=== PATIENT | female | born 1985 | race Caucasian/White ===

== ENCOUNTER 2025-02-10 12:29 | Observation (INO) | payer OTHER, SELFPAY ==
--- OUTSIDE RECORDS SUMMARY | 2025-02-07 11:00 | XMS_ITS | Encounter Summary ---
Author Organization [employer] tem Address [id number] [address] [place] [address] Care Team Providers Care It Administrative Assistant Name Role Phone Unavailable Primary Care Provider Unavailabl e Reason for Referral * Cardiology (Routine) - Pending Review Specialty Diagnoses / Procedures Referred By Tamanna hay Referred To Contact Diagnoses Family history of VSD (ventricular septal defect) Procedures Echo complete W/O contrast Catrachito Joel MD [address], [address] [place] [address] Phone: tel: fax: Referral ID Status Reason Start Date Expiration Date V isits Requested Visits Authorized [id number] Pending Review 02/07/2025 02/07/2026 1 1 Reason for Visit * Reason Comments MFM consult Encounter Details Date Type Department Care Team (Late st Contact Info) Description 02/07/2025 11:00 AM EDT Telemedicine Maternal Medicine [place] [address] [place] [address] Catrachito Joel MD [address], [address] [place] [id number] 22 weeks gestation of (Primary Dx); AMA (advanced maternal age) multigravida 35+, first trimester; Abnormal genetic test during ; trisomy 21 affecting care of mother, antepartum, single or unspecified fetus; affected by multiple congenital anomalies of fetus, single or unspecified fetus; Family history of VSD (ventricular septal defect) Social History Tobacco Use Types Packs/Day Years Used Date Smoking Tobacco: Some Days Cigarettes Smokeless Tobacco: Never Alcohol Use Standard Drinks/Week Comments Not Currently 0 (1 standard drink = 0.6 oz pur e alcohol) Childcare Answer Date Recorded Childcare Unknown 11/15/2018 Employment Answer Date Recorded Employment Unknown 11/15/2018 Hunger Screening Answer Date Recorded Within the past 12 months we worried whether our food would run out before we got money to buy more. Never True 02/07/2025 Within the past 12 months th e food we bought just didn't last and we didn't have money to get more. Never True 02/07/2025 Estimated Date of Delivery Comme nts Yes 06/13/2025 Based on Ultraso und Sex and Gender Information Value Date Recorded Sex Assigned at Not on file Legal Sex Female 12:10 PM EDT Gender Identity Not on file Sexual Orientation Not on file documented as of this encounter Last Filed Vital Signs Vital Sign Reading Time Taken Comments Blood Pressure 100/70 02/07/2025 11:13 AM EDT Pulse - - Temperature - - Respiratory Rate - - Oxygen Saturation - - Inhaled Oxygen Concentration - - Weight 73.8 kg (162 lb 12.8 oz) 025 11:13 AM EDT Height - - Body Mass Index 29.78 10/12/2024 3:45 PM EDT documented in this encounter Progress Notes * Kat Angela RN - 02/07/2025 11:00 AM EDT Headache/epigastric pain/blurry vision/swelling? denies Cramping/contractions? denies Spotting/vaginal bleeding? denies Loss or gush of fluid like your water may have broken? denies Do you have cats at home? yes Do you change the litter box (reason: risk of toxoplasmosis)? no Genetic testing done this here or other office? yes, (+) T21, carrier screen positive, MSAFP negative Have you been seen here at [facility] in a previous ? no Recent ER visits or hospitalizations? denies Bring blood sugar log or meter with you today? (Please bring them with you for every visit at [facility]) na Flu vaccine (Apr-August)? no Any concerns that you would like me to mention to the provider today? None * Catrachito Joel MD - 02/07/2025 11:00 AM EDT Images from the original note were not included. Video Visit via Real-time Synchronous Audiovisual Provider Location: [facility]- MEDICINE AT [address] [address] Patient Location: [facility] Office Patient Location [place]: None Video Visit Consent Statement: I discussed risks, benefits, and alternatives of a real-time synchronous audiovisual consultation with the patient (and any accompanying persons) including the risks that the patient's personal health details and medical records will be discussed over real-time, synchronous, interactive video/audio/telecommunication technology, the visit will not be recorded withoutthe express consent of both the provider and the patient, and that there are some limitations compared to [id number]-xu-xaqj evaluations. We elected to proceed. [facility] Maternal- Medicine Consult Note Reason For Consult: Trisomy 21 high risk HPI: Cha Mcgregor is a 39 y.o. at 22w0d with Estimated Date of Delivery: 06/13/25 Chief Complaint Patient presents with [facility] consult I have reviewed the pertinent available patient records including but not limited to notes, labs and images She presents today with her partner. She reports that she is doing well. She reports normal movements and she denies leakage of fluid, contractions or vaginal bleeding. She denies fever, chills, nausea, vomiting, shortness of breath, chest pain, headache, blurry vision, right upper quadrant pain or edema. Complications: Cell free DNA high-risk for T21 along with multiple anomalies Baby Boy Name: Arvind Alvarado s/p genetic consult. Has declined amniocentesis. Multiple anomalies today concerning for T21 - absent nasal bone - left pyelectasis measuring 5.6 mm - left clubfoot - echogenic intracardiac focus - VSD - abnormal three-vessel view with a concern for dilated aortic root - hypocoiled cord Advanced maternal age Carrier for Ftnxo-Iiyio-Xxolg - FOB screen drawn today Her sister was born with a hole in the heart that closed on its own. Her mother has MS. There is also family history of autism FOB has Tourette syndrome Denies family history of: Learning difficulties, congenital anomalies, DVT/VTE, or other inherited conditions Cell free DNA: high risk for Trisomy 21 MSAFP: negative Denies smoking, alcohol or other substance use in Denies exposure to cat litter, farming animals, toxic exposure to chemical at work/environment Recent hospitalization: no Review of systems: Review of systems was noncontributory OB Hx: OB History Para Term AB Living 1 SAB IAB Ectopic Multiple Live Births # Outcome Date GA Lbr Selvin/2nd Weight Sex Type Anes PTL Lv 1 Current PMH: Past Medical History: Diagnosis Date GERD (gastroesophageal reflux disease) PSHIST: History reviewed. No pertinent surgical history. Allergies: Allergies Allergen Reactions Sulfamethoxazole-Trimethoprim Hives Amoxicillin Rash As child Penicillins Rash As child Meds: Current Outpatient Medications: famotidine (PEPCID) 20 mg tablet, Take 1 tablet (20 mg total) by mouth once daily at bedtime for 30days., Disp: 30 tablet, Rfl: 1 magnesium oxide (MAGOX) 400 mg tablet, Take 1 tablet (400 mg total) by mouth in the morning for 30 days., Disp: 30 tablet, Rfl: 3 vit,efqi56-wfrk-ursto 29 mg iron- 1 mg tablet, Take 1 tablet by mouth in the morning for 90 days., Disp: 90 tablet, Rfl: 3 doxylamine (UNISOM) 25 mg tablet, Take one tablet by mouth at bedtime (Patient not taking: Reportedon 11/30/2024), Disp: 30 tablet, Rfl: 6 PNV 12-rvod-ilqlxryfsmgj-dha 29 mg iron-1 mg -350 mg comb pack,tablet DR,capsule DR, Take 1 tablet by mouth in the morning. (Patient not taking: Reported on 02/07/2025), Disp: , Rfl: pyridoxine, vitamin B6, (B-6) 25 mg tablet, Take 1 tablet (25 mg total) by mouth 4 (four) times a day with meals and nightly. (Patient not taking: Reported on 11/30/2024), Disp: 120 tablet, Rfl: 6 SH: Social History Socioeconomic History Marital status: Spouse name: Not on file Number of children: Not on file Years of education: Not on file Highest education level: Not on file Occupational History Not on file Tobacco Use Smoking status: Some Days Types: Cigarettes Smokeless tobacco: Never Vaping Use Vaping status: Never Used Substance and Sexual Activity Alcohol use: Not Currently Drug use: Yes Types: Marijuana Comment: Approx 2 times daily Sexual activity: Yes Partners: Male Comment: x 3 years Other Topics Concern Not on file Social History Narrative Not on file Social Drivers of Health Financial Resource Strain: Not on file Food Insecurity: No Food Insecurity (02/07/2025) Hunger Screening Food Insecurity - Worry: Never True Food Insecurity - Inability: Never True Transportation Needs: Not on file Physical Activity: Not on file Stress: Not on file Social Connections: Not on file Interpersonal Safety: Not on file Housing Instability: Not on file Physical Exam: Vital Signs Vitals: 02/07/25 1113 BP: 100/70 Weight: 73.8 kg (162 lb 12.8 oz) Physical Exam: Gen: Not in acute distress, alert and oriented. Notes/Imaging/Labs reviewed Routine on 01/25/2025 Component Date Value Ref Range Status AFP SINGLE MARKER SCRN, MATERNAL, * 01/25/2025 SEE COMMENTS Final Comment: Test Result Flag Unit RefValue AFP Single Marker SCRN, Maternal, S Results Summary Normal risk Neural tube defect risk estimate 1/6,500 AFP 69.5 ng/mL AFP MoM 1.24 MoM <2.50 INTERPRETATION Screen negative for neural tube defects. RECOMMENDED FOLLOW UP None. Specimen collection date 01/25/25 Maternal date of 89 Calculated age at IDRIS 40 years Maternal Weight 161 lbs Insulin dependent diabetes No Patient race non-Black Current cigarette smoking status non-Smoker IDRIS by U/S scan 06/13/2025 GA on collection by U/S scan 20,1 wk,d GA used in risk estimate Scan estimate Number of Fetuses 1 Number of Chorions Not applicable IVF No Prev w/ Neural Tube Defect No Patient or father of baby has a NTD No Initial or repeat testing Initial testing Physician GENERAL TEST INFORMATION SEE COMMENTS This screening provides an estimation of risk, not a diagnosis. Incorrect or incomplete information may significantly alter results. Results may be unreliable in twin pregnancies with a demise. Results are not available for pregnancies with triplets and higher-order multiples. A positive result occurs when the AFP MoM equals or exceeds 2.5. Screen results and family history influence individual risk. If there is a family history of a neural tube defect, chromosome abnormality, or other inherited condition, consider the option of a genetic consultation. For further information, please contact the maternal screening laboratory at . ADDITIONAL INFORMATION This test was developed and its performance characteristics determined by [facility] in a manner consistent with CLIA requirements. This test has not been cleared or approved by the U.S. Food and Drug Administration. Test Performed by: [facility] [address] [place] [address] Hat Blocking Machine Operator: Machelle Stinson Ph.D.; CLIA# [id number] Ultrasound findings Pertinent Ultrasound findings are see report Assessment/Plan 39 y.o. @ at 22w0d with Estimated Date of Delivery: 06/13/25 here for consultation regardin. 22 weeks gestation of 2. AMA (advanced maternal age) multigravida 35+, first trimester 3. Abnormal genetic test during 4. trisomy 21 affecting care of mother, antepartum, single or unspecified fetus 5. affected by multiple congenital anomalies of fetus, single or unspecified fetus 6. 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 Risk after test 95%. She understands that cell free DNA is not a diagnostic test with a screening test. She has a received genetic consultation. Amniocentesis was reviewed again today in detail and she declined. This is a desired . Down syndrome (trisomy 21) is a genetic disorder caused by the presence of all or a portion of a third chromosome 21.The incidence of Down syndrome increases with maternal age, and it occurrence varies in different population (1 in 319 to 1 in 1000 live births). In terms of pathophysiology T21 occurs due to an extra copy of chromosome 21 which occurs due to the failure of chromosome 21 to separate during gametogenesis resulting in an extra chromosome in all the body cells. Robertsonian translocation and isochromosome or ring chromosome are the other 2 possible causes of trisomy 21. This occurs in 2% to 4% of the patients. Different clinical conditions are associated with T21 as different systems are affected by it. These patients have a wide array of signs and symptoms like intellectual and developmental disabilities or neurological features, congenital heart defects, gastrointestinal (GI) abnormalities, hematologic abnormalities, ears/nose/throat issues, feeding problems, endocrine problems. Also T21 survivors are at increased risk for conditions such as leukomeia, early-onset dementia, diabetes, obesity too. The management of patients with T21 is multidisciplinary. with suspicion of Down syndrome, should have a karyotyping done to confirm the diagnosis. With the recentadvances in the medical practice, development of surgical techniques for the correction of congenital disabilities and improvement in general care there has been a tremendous increase in the survivalof infants and life expectancy of patients with Down syndrome. On ultrasound today there are multiple anomalies concerning for trisomy 21. Absent nasal bone, left pyelectasis measuring 5.6 mm left clubfoot, echogenic intracardiac focus, VSD, abnormal three-vessel view with a concern for dilated aortic root, hypocoiled cord. Each of the findings was reviewed in great detail. Pediatric cardiology referral initiated. The patient we will need NICU consultation in the 3rd trimester. We will continue to re-evaluate the kidneys on ultrasound today otherwise normal appearance of the right kidney, amniotic fluid and bladder. Idiscussed with her that I would recommend serial growth ultrasounds, surveillance and her should be managed in multidisciplinary fashion with NICU and pediatric cardiology. Pediatric orthopedics would also evaluated the baby postnatally for the clubfoot. Risks of advanced maternal age to her include but not limited to increased risk of preeclampsia, gestational diabetes, stillbirth and placenta insufficiency. She is a carrier for Avhrp-Idowu-Vjdbm. Phenotype genotype of the condition reviewed and FOB to be screened today Risk of MS current discussed. She declines having any neurological symptoms. The patient herself has never had an echocardiogram I reviewed with her that technically an echocardiogram is also indicated in her case as she has a first- degree relative with a congenital heart defects. The patient herself otherwise has been asymptomatic from a cardiac standpoint. Recommendations: Declined amniocentesis Referral to pediatric cardiology Follow-up survey and MFM consult in 4 weeks at [facility] Serial growth ultrasounds q.4 weeks through MFM Weekly NST and DVP from 32 weeks until delivery this can be done through primary OB office Delivery location I recommend delivery at [facility] NICU consult The patient to be presented to multidisciplinary meeting with the NICU Timing of delivery at 39 weeks provided maternal and stability Please monitor her mood Screening maternal echocardiogram Plan reviewed with patient. She vocalized understanding all questions answered. The patient is to continue with routine care in your office Thank you for allowing me to participate in her care. Please contact me if you have any concerns. Catrachito Joel MD, FACOG (she/hers) Maternal- Medicine [facility] [address] [facility] 1st [place] [address] This document was created with [employer] technology. Though I make every effort to review the dictation as it is transcribed, on occasion the spoken word can be misinterpreted by the technology leading to inappropriate words, phrases, or sentences. This note is addressed to the requesting provider as a consultation for clinical guidance. Specificmedical abbreviations are occasionally used and those are generally approved by the [place]?Board of?Obstetrics and?Gynecology?as well as?Tian???s abbreviations. The above plan of care was based solely on the diagnoses for which a consultation was requested. ?More frequent testing may be indicated based on her other medical/obstetrical conditions. The management of other or medical conditions is beyond the scope of requested consultation and will c ontinue to be followed by the primary hostel manager or primary care provider. Note to patient: The 21st Century Cures Act makes medical notes like these available to patients inthe interest of transparency. However, be advised this is a medical document. It is intended as peer to peer communication. It is written in medical language and may contain abbreviations or verbiagethat are unfamiliar. It may appear blunt or direct. Medical documents are intended to carry relevant information, facts as evident, and the clinical opinion of the practitioner. * Kat Angela RN - 02/07/2025 11:00 AM EDT Father of baby would like to get the carrier screen done, but wishes to wait until he gets his insurance information. He does not yet have a card or ID #. Advised him to call the office as soon as hegets that information and I will draw the labs. documented in this encounter Plan of Treatment Upcoming Encounters Date Type Department Care Team (Late st Contact Info) Description 02/22/2025 9:00 AM EDT Routine [facility] Certified Nurse Roll Over Press Operator - [address] [place] [address] 03/12/2025 10:30 AM EDT Office Visit [facility] Pediatric Cardiology [address] [place] [phone] Jesus Tucker MD [address] [place] [address] 03/12/2025 1:00 PM EDT Appointment [facility] US Imaging [address] [place] [phone] Catrachito Joel MD [address], [address] [place] [address] 03/12/2025 2:00 PM EDT Office Visit Maternal- Medicine at [facility] [address] [place] [phone] Catrachito Joel MD [address], [address] [place] [phone] Scheduled Orders Name Type Priority Associated Diagnoses Orde r Schedule Echo complete W/O contrast Echocardiography Routine Family history of VSD (ventricular septal defect) Expected: 02/07/2025, Expires: 02/07/2026 documented as of this encounter Visit Diagnoses Diagnosis 22 weeks gestation of - Primary AMA (advanced maternal age) multigravida 35+, first trimester Abnormal genetic test during trisomy 21 affecting care of mother, antepartum, single or unspecified fetus affected by multiple congenital anomalies of fetus, single or unspecified fetus Family history of VSD (ventricular septal defect) documented in this encounter
--- OUTSIDE RECORDS SUMMARY | 2025-02-10 12:36 | XMS_ITS | Encounter Summary ---
Author Organization [employer] [facility] tem Address [id number] [address] [place] [address] Care Team Providers Care Supervisor Lace Tearing Name Role Phone Unavailable Primary Care Provider Unavailabl e Encounter Details Date Type Department Care Team (Latest Contact Info) Description 02/07/2025 Travel Social History Tobacco Use Types Packs/Day Years [...] on file documented as of this encounter Plan of Treatment Upcoming Encounters Date Type Department Care Team (Late st Contact Info) Description 02/22/2025 9:00 AM EDT Routine [facility] Certified Nurse Wire Winder - [place] [address] [facility] [address] [place] [phone] 03/12/2025 10:30 AM EDT Office Visit [facility] Pediatric Cardiology [address] [place] [address] Jesus Tucker MD [address] [place] [address] 03/12/2025 1:00 PM EDT Appointment [facility] US Imaging [address] [place] [phone] Catrachito Joel MD [address], [address] [place] [phone] 03/12/2025 2:00 PM EDT Office Visit Maternal- Medicine at [facility] [address] [place] [phone] Catrachito Joel MD [address], [address] [place] [phone] documented as of this encounter Visit Diagnoses Not on filedocumented in this encounter
--- OUTSIDE RECORDS SUMMARY | 2025-02-10 12:36 | XMS_ITS | Encounter Summary ---
Author Organization [employer] tem Address [id number] [address] [place] [address] Care Team Providers Care Product Managent Intern Name Role Phone Unavailable Primary Care Provider Unavailabl e Encounter Details Date Type Department Care Team (Late st Contact Info) Description 02/08/2025 Results Follow-Up Maternal Medicine [place] [address] [place] [address] Liliana Rodriguez, NETWORKING ADMINISTRATOR-CNM [address] [facility] [place] [address] [facility] with or without consult Social History Tobacco Use Types Packs/Day Years [...] on file documented as of this encounter Progress Notes * MARTA Cabrales - 02/08/2025 8:45 AM EDT Reviewed [facility] US @ 22 weeks Placenta posterior away from os / 3 vessel hypocoiled cord / MVP 6.2 cm AC 89% growth 70% VSD noted CL 4.51 cm Impression Single live intrauterine consistent with 22w 0d with an IDRIS of 06/13/2025. Normal growth. EFW measures at the 70%, AC measures at the 89%. Transvaginal cervical length measures 4.51 cm. Amniotic fluid MVP measures 6.2 cm. MARTA Cabrales 02/08/25 0851 documented in this encounter Plan of Treatment Upcoming Encounters Date Type Department Care Team (Late st Contact Info) Description 02/22/2025 9:00 AM EDT Routine [facility] Certified Nurse V Block Saw Operator - [place] [facility] [address] [place] [address] 03/12/2025 10:30 AM EDT Office Visit [facility] [address] [place] [address] Jesus Tucker MD [address] [place], [place] [phone] 03/12/2025 1:00 PM EDT Appointment [facility] US Imaging [address] [place] [phone] Catrachito Joel MD [address], [address] [place] [address] 03/12/2025 2:00 PM EDT Office Visit Maternal- Medicine at [facility] [address] [place] [phone] Catrachito Joel MD [address], [address] [place] [phone] documented as of this encounter Visit Diagnoses Not on filedocumented in this encounter
--- OUTSIDE RECORDS SUMMARY | 2025-02-10 12:37 | XMS_ITS | Encounter Summary ---
Author Organization [facility] tem Address [id number] [address] [place] [address] Care Team Providers Care Layout Artist Name Role Phone Unavailable Primary Care Provider Unavailabl e Reason for Referral * Consultation (Routine) - Pending Review Specialty Diagnoses / Procedures Referred By Tamanna hay Referred To Contact Pediatric Cardiology Diagnoses Abnormal ultrasonic finding on screening of mother, antepartum Catrachito Joel MD [address], [address] [place] [address] Phone: tel: fax: Jesus Tucker MD [address] [place] [address] [address] Phone: tel: fax: Referral ID Status Reason Start Date Expiration Date Visits Requested Visits Authorized [id number] Pending Review Specialty Services Required 02/07/2025 02/07/2026 1 1 Encounter Details Date Type Department Care Team (Late st Contact Info) Description 02/07/2025 Orders Only Maternal- Medicine at [facility] [address] [place] [address] Gavi Ibarra RDMS Abnormal ultrasonic finding on screening of mother, antepartum (Primary Dx) Social History Tobacco Use Types Packs/Day Years [...] Info) Description 02/22/2025 9:00 AM EDT Routine [facility] Certified Nurse Cyber Incident Handler - [place] [address] [facility] [facility] [address] [place] [address] 03/12/2025 10:30 AM EDT Office Visit [facility] [address] [place] [phone] Jesus Tucker MD [address] [place] [address] 03/12/2025 1:00 PM EDT Appointment [facility] - [facility] [address] [place] [phone] Catrachito Joel MD [address] [address] 03/12/2025 2:00 PM EDT Office Visit Maternal- Medicine at [facility] [address] [place] [phone] Catrachito Joel MD [address] [facility], [address] [place], [place] [id number] Scheduled Referrals Name Type Priority Associated Diagnoses Order Schedule [facility] - [place], [place] Outpatient Referral Routine Abnormal ultrasonic finding on screening of mother, antepartum 1 Occurrences starting 02/07/2025 until 02/07/2026 documented as of this encounter Visit Diagnoses Diagnosis Abnormal ultrasonic finding on screening of mother, antepartum- Primary documented in this encounter
--- OUTSIDE RECORDS SUMMARY | 2025-02-10 12:37 | XMS_ITS | Clinical Summary ---
Author Organization [facility] tem Address [id number] [address] [place] [address] Care Team Providers Care Switchboard Operator Receptionist Name Role Phone Unavailable Primary Care Provider Unavailabl e Allergies Active Allergy Reactions Criticality Noted Date Comments Amoxicillin Rash Low 10/12/2024 As child Penicillins Rash Low 10/12/2024 As child Sulfamethoxazole-Trimethoprim Hives Medium 2024 Medications pyridoxine, vitamin B6, (B-6) 25 mg tabletIndicatio ns:Nausea and vomiting in Take 1 tablet (25 mg total) by mouth 4 (four) times a day with meals and nightly. 120 tablet 6 5 Active Additional Information Patient not taking.Reported on 02/07/2025 doxylamine (UNISOM) 25 mg tabletIndicatio ns:Nausea and vomiting in Take one tablet by mouth at bedtime 30 tablet 6 5 Active Additional Information Patient not taking.Reported on 02/07/2025 PNV 73-sczn-uysuczt olate-dha 29 mg iron-1 mg -350 mg comb pack,tablet DR,capsule DR Take 1 tablet by mouth in the morning. Active vit,uytg04-vbia -folic 29 mg iron- 1 mg tabletIndicatio ns: care, first in first trimester Take 1 tablet by mouth in the morning for 90 days. 90 tablet 3 5 02/29/20 25 Active magnesium oxide (MAGOX) 400 mg tabletIndicatio ns:Leg cramps in Take 1 tablet (400 mg total) by mouth in the morning for 30 days. 30 tablet 3 5 02/25/20 25 Active famotidine (PEPCID) 20 mg tabletIndicatio ns:Heartburn in in second trimester Take 1 tablet (20 mg total) by mouth once daily at bedtime for 30 days. 30 tablet 1 5 02/25/20 25 Active Active Problems Patient Care Coordination No te Formatting of this note migh t be different from the original. 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 Referring OB: Brian Martinez CNM MFM: [facility] Maternal Hx: AMA MSAFP: Neg cfDNA: High risk T-21 Carrier: + Tqghn-Enndt-Mbuec Amnio: Declines [x]Genetic Counselling: Completed 12/26/24 [x]Peds Cardiology: Sched 02/26/25 Will resched with MFM appts []Peds Urology: []Peds Ortho: []Peds Surgery: []Peds Neurology: []Peds Neurosurgery: []Peds Craniofacial: []NICU Consult: []Palliative Care Consult: []SGM: []Life Connection: [][place]: [] MRI: []Nationwide: [][facility]: [][facility]: []RACHEL CHS: Delivery Recommendation: [] Term at local hospital [] Term at [facility] Surveillance Plan: [] Survey at __ weeks [] Growth q __ weeks [] Dopplers q __ weeks [] Echo at __ weeks [] Cervical length q __ weeks [] TTTS q __ weeks [] Wkly NST/DIANN starting at __ weeks [] 2x/wk NST/DIANN starting at __ weeks Problem Noted Date Diagnosed Date complicated by mul tiple congenital anomalies 02/07/2025 Trisomy 21, , affecting care of mother, ant epartum 02/07/2025 Abnormal genetic test during Genetic screening 12/13/2024 Overview (12/13/2024): + trisomy 21 12-11-24 Discussed and referred to [facility] genetic counseling Encounter for consultation for family hx 025 Overview (11/30/2024): Sister had whole in her heart Biological mother has MS Brother has autism Father is diabetic Recurrent cold sores 11/30/2024 Overview (11/30/2024): Valtrex with outbreak and at 36 weeks AMA (advanced maternal age) multigravida 35+, first trimester 11/30/2024 Overview (11/30/2024): Needs ASA 81 daily at 12 weeks Estimated Date of Delivery Comme nts Yes 06/13/2025 Based on Ultraso und Encounters Date Type Department Care Team Description 02/08/2025 Results Follow-Up [facility] [place] [address] [place] [address] Lars Rodriguez APRN-[facility] with or without consult 02/07/2025 11:00 AM EDT Telemedicine Maternal [facility] [place] [address] [place] [address] Sam Miranda MD 22 weeks gestation of (Primary Dx); AMA (advanced maternal age) multigravida 35+, first trimester; Abnormal genetic test during ; trisomy 21 affecting care of mother, antepartum, single or unspecified fetus; affected by multiple congenital anomalies of fetus, single or unspecified fetus; Family history of VSD (ventricular septal defect) 02/07/2025 Orders Only Maternal- Medicine at [facility] [address] [place] [address] Gavi Ibarra RDMS Abnormal ultrasonic finding on screening of mother, antepartum (Primary Dx) 02/07/2025 Orders Only Maternal- Medicine at [facility] [address] [place] [address] Maral Finch, EMPERATRIZ AMA (advanced maternal age) multigravida 35+, first trimester (Primary Dx); Genetic carrier; Family history of autism in sibling; Family history of congenital heart defect; Abnormal genetic test in 02/07/2025 Travel 01/28/2025 Results Follow-Up [facility] Certified Nurse Roller Coaster Operator - [place] [address] [address] Lars Rodriguez APRN-CNM AFP Single Marker Scrn, Maternal, Serum 01/25/2025 9:00 AM EDT Routine [facility] Certified Nurse Roller Coaster Operator - [place] [address] [address] [place]: 20w1d 01/25/2025 Travel 01/04/2025 Results Follow-Up [facility] Certified Nurse Roller Coaster Operator - [place] [address] [address] Lars Rodriguez APRN-CNM Urine Culture 12/28/2024 9:15 AM EDT Routine [facility] Certified Nurse Roller Coaster Operator - [place] [address] [address] [place]: 16w1d 12/26/2024 2:00 PM EDT Telemedicine Maternal- Medicine at [facility] [address] [place] [address] Marjan Willoughby P, LGC Abnormal genetic test in (Primary Dx); AMA (advanced maternal age) multigravida 35+, first trimester; Genetic carrier; Family history of autism in sibling; Family history of congenital heart defect 12/26/2024 Travel 12/20/2024 Results Follow-Up [facility] Certified Nurse Roller Coaster Operator - [place] [address] [address] Lars Rodriguez APRN-CNM Carrier Study [facility] 12/19/2024 Orders Only [facility] Certified Nurse Roller Coaster Operator - [place] [address] [address] Kat Angela, EMPERATRIZ screening encounter 12/19/2024 Orders Only [facility] Certified Nurse Roller Coaster Operator [facility] [address] [address] Kat Angela, EMPERATRIZ screening encounter (Primary Dx) 12/11/2024 Telephone [facility] Certified Nurse Roller Coaster Operator - [place] [address] [place] [phone] Meggan Herrera, ASSISTANT DIRECTOR OF PUBLIC WORKS-SHANTELM 12/11/2024 Orders Only [facility] Certified Nurse Roller Coaster Operator [address] [address] Caleb Wu CMA Encounter for screening for other genetic defects (Primary Dx) 12/11/2024 Orders Only [facility] Certified Nurse Roller Coaster Operator [address] [address] Meggan Herrera APRN-CNM Trisomy 21 (Primary Dx) 12/04/2024 Orders Only [facility] [address] [facility] [address] [place] [address] Lars Rodriguez, ASSISTANT DIRECTOR OF PUBLIC WORKS-[facility] Yeast UTI (Primary Dx) 11/30/2024 9:30 AM EDT Initial [facility] Certified Nurse Roller Coaster Operator [address] [address] [place]: 12w1d 11/30/2024 Telephone [facility] Certified Nurse Roller Coaster Operator [address] [address] Paula Cheema 11/30/2024 Travel from Last 3 Months Family History Medical History Relation Name Comments Diabetes Father Hypertension Father Stroke Father Multiple sclerosis Mother covid pneumonia Mother Heart attack Paternal Grandfather No Known Problems Paternal Grandmother Breast cancer Neg Hx Colon cancer Neg Hx Ovarian cancer Neg Hx Relation Name Status Comments Father Alive Maternal Grandfather unknown Maternal Grandmother unknown Mother Paternal Grandfather Paternal Grandmother Social History Tobacco Use Types Packs/Day Years Used Date Smoking Tobacco: Some Days Cigarettes Smokeless Tobacco: Never Tobacco Cessation:Ready to Q uit: Not Asked; Counseling Given: Not Answered Alcohol Use Standard Drinks/Week Comments Not Currently [...] on file Sexual Orientation Not on file Last Filed Vital Signs Vital Sign Reading Time Taken Comments Blood Pressure 100/70 02/07/2025 11:13 AM EDT Pulse - - Temperature - - Respiratory Rate - - Oxygen Saturation - - Inhaled Oxygen Concentration - - Weight 73.8 kg (162 lb 12.8 oz) 025 11:13 AM EDT Height 157.5 cm (5' 2 ) 10/12/2024 3:45 PM EDT Body Mass Index 29.78 10/12/2024 3:45 PM EDT Plan of Treatment Upcoming Encounters Date Type Department Care Team (Late st Contact Info) Description 02/22/2025 9:00 AM EDT Routine [facility] Certified Nurse Roller Coaster Operator - [place] [address] [place] [phone] 03/12/2025 10:30 AM EDT Office Visit [facility] [address] [place] [address] Jesus Tucker MD [address] [place] [address] 03/12/2025 1:00 PM EDT Appointment [facility] [address] [place] [phone] Sam Miranda MD [address], [address] [place] [address] 03/12/2025 2:00 PM EDT Office Visit Maternal- Medicine at [facility] [address] [place] [phone] Sam Miranda MD [address] [facility], [address] [place] [address] Health Maintenance Due Date Last Done Comments Tobacco Counseling 1985 Depression Screening 1999 Adult BMI Follow Up Plan 2005 DTaP,Tdap and Td Vaccines (1 - Tdap) 2006 Influenza Vaccine 02/04/2025 Adult BMI Screening 02/07/2026 02/07/2025 Tobacco Screening 02/07/2026 02/07/2025 Pap Smear 12/01/2027 11/30/2024, 11/30/2024 Medical Devices Not on file Procedures Procedure Name Priority Date/Time Associated Diagnosis Comments US [facility] COMPREHENSIVE ANATOMIC SURVEY Routine 02/07/2025 11:45 AM EDT AMA (advanced maternal age) primigravida 35+, first trimester Family history of MS (multiple sclerosis) Family history of autism in sibling Cardiac anomaly AFP SINGLE MARKER SCRN, MATERNAL, SERUM Routine 01/25/2025 9:33 AM EDT screening encounter URINE CULTURE Routine 12/28/2024 10:06 AM EDT Urinary tract infection in mother during second trimester of THIN PREP PAP TEST Routine 11/30/2024 12 :35 PM EDT Cervical cancer screening HIGH RISK HPV W/ORLY Routine 11/30/2024 12:35 PM EDT Cervical cancer screening CHLAMYDIA/GONORRHOEAE BY PCR, FLUID Routine 11/30/2024 12:35 PM EDT Cervical cancer screening REPEATED ABORH Routine 11/30/2024 12:20 PM EDT care, first in first trimester ABO/RH Routine 11/30/2024 12:20 PM EDT care, first in first trimester GLU 1H POST 50G LOAD Routine 11/30/2024 12:20 PM EDT care, first in first trimester DRUG SCREEN, URINE Routine 11/30/2024 12 :20 PM EDT care, first in first trimester GLUCOSE TOLERANCE, 1 HR 50GM LOAD ( PATIENTS ONLY) Routine 11/30/2024 12:20 PM EDT care, first in first trimester VARICELLA ZOSTER ANTIBODY, IGG Routine 11/30/2024 12:20 PM EDT care, first in first trimester RUBELLA IGG IMMUNE STATUS Routine 11/30/2024 12:20 PM EDT care, first in first trimester HEPATITIS PANEL, ACUTE Routine 11/30/2024 12:20 PM EDT care, first in first trimester CBC (NO DIFF) Routine 11/30/2024 12:20 PM EDT care, first in first trimester SYPHILIS TOTAL(UNKNOWN SYPHILIS STATUS) Routine 11/30/2024 12:20 PM EDT care, first in first trimester HIV 1&2 AB/AG SCREEN (P24 AG) Routine 11/30/2024 12:20 PM EDT care, first in first trimester URINE CULTURE Routine 11/30/2024 12:20 PM EDT care, first in first trimester CARRIER STUDY NON-[facility] Routine 11/30/2024 screening encounter YAKELIN NON-[facility] Routine 11/30/2024 Encounter for screening for other genetic defects from Last 3 Months Results * US M COMPREHENSIVE ANATOMIC SURVEY (02/07/2025 11:45 AM EDT) Anatomical Region Laterality Modality OB-MANUFACTURER'S SERVICE REPRESENTATIVE Ultrasound 02/07/2025 10:0 3 AM EDT Narrative 02/07/2025 6:53 PM EDT NAME: KATHY GLEZ : 1985 SEX: F Accession Number: [id number] ORDERING PHYSICIAN: SAM MIRANDA REFERRING PHYSICIAN: LARS RODRIGUEZ Coding ----- --------- Procedures [id number]: Ultrasound, uterus, real time with image documentation, and maternal evaluation plus detailed anatomic examination, transabdominal approach;single or first gestation [id number]: Transvaginal Ultrasound (OB) 21438: Echocardiography, , cardiovascular system, real time with image documentation (2D), with or without M-mode recording Indication ----- --------- Screening for Anatomic Survey , Screening for cervical length , Screening for congenital cardiac abnormality, AMA- Supervision of elderly, Abnormal finding on screening of mother -(CFDNA +T21, +Xegff-Bdfqd-Opjad carrier), Smoking in , Marijuana use in , Supervision of high risk -(EIF, Left pyelectasis, left clubbed foot, hypocoiled cord, absent nasal bone, VSD). History ----- --------- OB History 1. Para 0 [id number] Current ----- --------- Cell free DNA +T21 analysis Maternal Assessment ----- --------- Physical Exam Height 157 cm, 5 ft 2 in. Weight 73 kg, 162 lb. Initial weight 73 kg, 160 lb. BMI 29.63 kg/m . Initial BMI 29.26 kg/m . Weight gain 1 kg, 2 lb Method ----- --------- Transabdominal and transvaginal ultrasound examination. View: Suboptimal view: limited by position and activity. ----- --------- Van . Number of fetuses: 1 Dating ----- --------- LMP on: 07/28/2024 GA by LMP 27 w + 5 d IDRIS by LMP: 05/04/2025 Previous Ultrasound on: 10/19/2024 Type of prior assessment: CRL U/S measurement at prior assessment date 4.2 mm GA by previous U/S 22 w + 0 d IDRIS by previous Ultrasound: 06/13/2025 Ultrasound examination on: 02/07/2025 GA by U/S based upon: AC, BPD, Femur, HC GA by U/S 22 w + 1 d IDRIS by U/S: 06/12/2025 Assigned: based on ultrasound (CRL), selected on 02/07/2025 Assigned GA (weeks days) 22 w + 0 d Assigned IDRIS: 06/13/2025 General Evaluation ----- --------- Cardiac activity Present. FHR 141 bpm. Presentation: variable Placenta: Placental site: posterior, away from cervical os Umbilical cord: Cord vessels: 3 vessel cord, hypocoiled cord. Insertion site: suboptimal Amniotic fluid: Amount of AF: normal amount. MVP 6.2 cm Biometry ----- --------- Standard BPD 51.6 mm 21w 5d 33% Hadlock OFD 67.7 mm 22w 5d 74% Chanel HC 190.7 mm 21w 2d 15% Hadlock Cerebellum tr 24.1 mm 22w 1d 77% Hill AC 189.0 mm 23w 5d 89% Hadlock Femur 36.3 mm 21w 4d 24% Hadlock Humerus 33.6 mm 21w 3d 28% Chanel HC / AC 1.01 EFW 512 g 70% Hadlock EFW (lb) 1 lb EFW (oz) 2 oz EFW by: Hadlock ([id number]) Extended Tibia 33.6 mm 22w 3d 70% Chanel Police [employer] Dispatcher 5.1 mm CM 5.4 mm 48% Nicolaides Inner IOD 13.2 mm Outer IOD 34.3 mm Head / Face / Neck Cephalic index 0.76 25% Nicolaides Nasal bone: absent Extremities / Bony Struc FL / BPD 0.70 FL / HC 0.19 FL / AC 0.19 Other Structures FHR 141 bpm Anatomy ----- --------- The following structures appear abnormal: Face: Nasal bone. Heart/Thorax: LVOT view. 3-vessel view. Abdomen: Left kidney: pyelectasis. Extremities/Skeleton: Left foot: clubbed foot. Skeleton The following structures appear normal: Head/Neck: Cranium. Lateral ventricles. Choroid plexus. Midline falx. Cavum septi pellucidi. Cerebellum. Cisterna magna. Parenchyma. Vermis. Neck. Face Lips. Profile. Nose. Maxilla. Mandible. Heart / Thorax 4-chamber view: echogenic intracardiac focus. RVOT view. Great vessels. Right lung. Left lung. Diaphragm. Abdomen Abdom. wall. Cord insertion. Stomach. Bladder. Genitals. Spine: Cervical spine. Thoracic spine. Lumbar spine. Sacral spine. Extremities / Right upper arm. Right forearm. Right hand. Left upper arm. Left forearm. Left hand. Right upper leg. Right lower leg. Right foot. Left upper leg. Left lower leg. The following structures could not be adequately visualized: Face Orbits. Heart / Thorax 3-jrnnni-wxotykt view. Abdomen Right kidney. Small bowel. Large bowel. Right renal artery. Left renal artery. Echocardiogram ----- --------- Situs situs solitus (normal) Cardiac position normal Cardiac axis normal Cardiac size normal (approx. 1/3 of thoracic area) Cardiac rhythm regular (normal) 4-chamber view normal, echogenic intracardiac focus LVOT view abnormal RVOT view normal 3-vessel view abnormal 5-qahfoh-urjqczg view suboptimal Aortic arch view suboptimal Ductal arch view normal Bicaval view suboptimal Interventricular septum abnormal, VSD Venous-atrial connections normal AV connections normal VA connections normal Pulmonary veins suboptimal Right atrium normal Left atrium normal Atrial septum normal Foramen ovale normal Right ventricle normal Left ventricle normal Ventricular septum abnormal Cross-over gr. arteries anterior great artery (confirmed to be the pulmonary artery by its branching) which crosses the course of the proximal aorta, indicative of normal relationship of the great arteries Main PA the main pulmonary artery can be seen bifurcating into the ductus arteriosus and the right pulmonary artery Pulmonary arteries normal Linear insertion of AV valves no Pericardial effusion no Maternal Structures ----- --------- Uterus Visualized Cervix Visualized Approach - Transvaginal: Cervical length 4.51 cm Right Ovary Not visualized Left Ovary Not visualized Cul de Sac Visualized. No free fluid visualized Impression ----- --------- Single live intrauterine consistent with 22w 0d with an IDRIS of 06/13/2025. Normal growth. EFW measures at the 70%, AC measures at the 89%. Transvaginal cervical length measures 4.51 cm. Amniotic fluid MVP measures 6.2 cm. High risk cell free DNA for Trisomy 21 Multiple anomalies visualized including but not limited to: - Absent nasal bone - Left pyelectasis measuring 5.6 mm - Left clubbed foot - Echogenic intracardiac focus in left ventricle - VSD - Abnormal three-vessel view with a concern for dilated aortic root - Hypocoiled cord Recommendations ----- --------- Please see M documentation from today. The patient is scheduled in four weeks to complete anatomic survey and echocardiogram at [facility]. Subsequent follow up or other follow up as clinically determined by primary OB provider unless otherwise specified by MFM. Results forwarded to ordering provider so they can follow up with the patient as necessary. Procedure Note Sam Miranda MD - 02/07/2025 NAME: KATHY GLEZ : 1985 SEX: F Accession Number: [id number] ORDERING PHYSICIAN: SAM MIRANDA REFERRING PHYSICIAN: LARS RODRIGUEZ Coding ----- --------- Procedures [id number]: Ultrasound, uterus, real time with imagedocumentation, and maternal evaluation plus detailed anatomic examination, transabdominalapproach;single or first gestation [id number]: Transvaginal Ultrasound (OB) 51140: Echocardiography, , cardiovascular system, real timewith image documentation (2D), with or without M-mode recording Indication ----- --------- Screening for Anatomic Survey , Screening for cervical length , Screeningfor congenital cardiac abnormality, AMA- Supervision of elderly, Abnormal finding on screening of mother -(CFDNA +T21,+Cphfz-Indrr-Qpwsq carrier), Smoking in , Marijuana use in , Supervision of high risk -(EIF, Leftpyelectasis, left clubbed foot, hypocoiled cord, absent nasal bone, VSD). History ----- --------- OB History 1. Para 0 [id number] Current ----- --------- Cell free DNA +T21 analysis Maternal Assessment ----- --------- Physical Exam Height 157 cm, 5 ft 2 in. Weight 73 kg, 162 lb. Initialweight 73 kg, 160 lb. BMI 29.63 kg/m . Initial BMI 29.26 kg/m . Weight gain 1 kg, 2 lb Method ----- --------- Transabdominal and transvaginal ultrasound examination. View: Suboptimalview: limited by position and activity. ----- --------- Van . Number of fetuses: 1 Dating ----- --------- LMP on: 07/28/2024 GA by LMP 27 w + 5 d IDRIS by LMP: 05/04/2025 Previous Ultrasound on: 10/19/2024 Type of prior assessment: CRL U/S measurement at prior assessment date 4.2 mm GA by previous U/S 22 w + 0 d IDRIS by previous Ultrasound: 06/13/2025 Ultrasound examination on: 02/07/2025 GA by U/S based upon: AC, BPD, Femur, HC GA by U/S 22 w + 1 d IDRIS by U/S: 06/12/2025 Assigned: based on ultrasound (CRL), selected on 02/07/2025 Assigned GA (weeks days) 22 w + 0 d Assigned IDRIS: 06/13/2025 General Evaluation ----- --------- Cardiac activity Present. FHR 141 bpm. Presentation: variable Placenta: Placental site: posterior, away from cervical os Umbilical cord: Cord vessels: 3 vessel cord, hypocoiled cord. Insertionsite: suboptimal Amniotic fluid: Amount of AF: normal amount. MVP 6.2 cm Biometry ----- --------- Standard BPD 51.6 mm 21w 5d 33% Hadlock OFD 67.7 mm 22w 5d 74% Chanel HC 190.7 mm 21w 2d 15% Hadlock Cerebellum tr 24.1 mm 22w 1d 77% Hill AC 189.0 mm 23w 5d 89% Hadlock Femur 36.3 mm 21w 4d 24% Hadlock Humerus 33.6 mm 21w 3d 28% Chanel HC / AC 1.01 EFW 512 g 70% Hadlock EFW (lb) 1 lb EFW (oz) 2 oz EFW by: Hadlock ([id number]) Extended Tibia 33.6 mm 22w 3d 70% Chanel [employer] Dispatcher 5.1 mm CM 5.4 mm 48% Nicolaides Inner IOD 13.2 mm Outer IOD 34.3 mm Head / Face / Neck Cephalic index 0.76 25% Nicolaides Nasal bone: absent Extremities / Bony Struc FL / BPD 0.70 FL / HC 0.19 FL / AC 0.19 Other Structures FHR 141 bpm Anatomy ----- --------- The following structures appear abnormal: Face: Nasal bone. Heart/Thorax: LVOT view. 3-vessel view. Abdomen: Left kidney: pyelectasis. Extremities/Skeleton: Left foot: clubbed foot. Skeleton The following structures appear normal: Head/Neck: Cranium. Lateral ventricles. Choroid plexus. Midline falx.Cavum septi pellucidi. Cerebellum. Cisterna magna. Parenchyma. Vermis. Neck. Face Lips. Profile. Nose. Maxilla. Mandible. Heart / Thorax 4-chamber view: echogenic intracardiac focus. RVOT view.Great vessels. Right lung. Left lung. Diaphragm. Abdomen Abdom. wall. Cord insertion. Stomach. Bladder. Genitals. Spine: Cervical spine. Thoracic spine. Lumbar spine. Sacral spine. Extremities / Right upper arm. Right forearm. Right hand. Left upper arm.Left forearm. Left hand. Right upper leg. Right lower leg. Right foot. Left upper leg. Left lower leg. The following structures could not be adequately visualized: Face Orbits. Heart / Thorax 7-wbpapm-mdiystf view. Abdomen Right kidney. Small bowel. Large bowel. Right renal artery.Left renal artery. Echocardiogram ----- --------- Situs situs solitus (normal) Cardiac position normal Cardiac axis normal Cardiac size normal (approx. 1/3 of thoracic area) Cardiac rhythm regular (normal) 4-chamber view normal, echogenic intracardiac focus LVOT view abnormal RVOT view normal 3-vessel view abnormal 8-kbpeef-cnwjmbs view suboptimal Aortic arch view suboptimal Ductal arch view normal Bicaval view suboptimal Interventricular septum abnormal, VSD Venous-atrial connections normal AV connections normal VA connections normal Pulmonary veins suboptimal Right atrium normal Left atrium normal Atrial septum normal Foramen ovale normal Right ventricle normal Left ventricle normal Ventricular septum abnormal Cross-over gr. arteries anterior great artery (confirmed to be thepulmonary artery by its branching) which crosses the course of the proximal aorta, indicative ofnormal relationship of the great arteries Main PA the main pulmonary artery can be seen bifurcatinginto the ductus arteriosus and the right pulmonary artery Pulmonary arteries normal Linear insertion of AV valves no Pericardial effusion no Maternal Structures ----- --------- Uterus Visualized Cervix Visualized Approach - Transvaginal: Cervical length 4.51 cm Right Ovary Not visualized Left Ovary Not visualized Cul de Sac Visualized. No free fluid visualized Impression ----- --------- Single live intrauterine consistent with 22w 0d with an IDRIS of06/13/2025. Normal growth. EFW measures at the 70%, AC measures at the 89%. Transvaginal cervical length measures 4.51 cm. Amniotic fluid MVP measures 6.2 cm. High risk cell free DNA for Trisomy 21 Multiple anomalies visualized including but not limited to: - Absent nasal bone - Left pyelectasis measuring 5.6 mm - Left clubbed foot - Echogenic intracardiac focus in left ventricle - VSD - Abnormal three-vessel view with a concern for dilated aortic root - Hypocoiled cord Recommendations ----- --------- Please see MFM documentation from today. The patient is scheduled in four weeks to complete anatomic survey [facility]. Subsequent follow up or other follow up as clinically determined byprimary OB provider unless otherwise specified by [facility]. Results forwarded to ordering provider so they can follow up with thepatient as necessary. Sam Miranda MD [facility] US ORDERABLES Final Re sult * AFP Single Marker Scrn, Maternal, Serum (01/25/2025 9:33 AM EDT) AFP SINGLE MARKER SCRN, MATERNAL, SERUM SEE COMMENTS 01/28/2025 12:57 PM EDT [facility] [employer] Comment: Test Result Flag Unit RefValue AFP Single Marker SCRN, Maternal, S Results Summary Normal risk Neural tube defect risk estimate 1,500 AFP 69.5 ng/mL AFP MoM 1.24 MoM [...] developed and its performance characteristics determined by [facility] in a manner consistent with CLIA requirements. This test has not been cleared or approved by the U.S. Food and Drug Administration. Test Performed by: [facility] [address] [place] [address] Lab Head: Machelle Stinson Ph.D.; CLIA# [id number] Blood Venous blood / Unknown 01/25/2025 9:33 AM EDT 01/25/2025 9:33 AM EDT Lars SANDERS LAB BLOOD ORDERABLES Final Result [facility] [address] [place] [address], * Urine Culture (12/28/2024 10:06 AM EDT) Only the most recent of2 resultswithin the time period is included. CULTURE RESULTS <10,000 ORGANISMS/m L NORMAL URO GENITAL DAVID 12/29/2024 11:05 AM EDT [facility] Urine Urine specimen collection, clean catch / Unknown 12/28/2024 10:06 AM EDT 12/28/2024 10:06 AM EDT Lars SANDERS MICROBIOLOGY - GENERA L ORDERABLES Final Result [facility] [address] [place] [address], * Chlamydia/Gonorrhoeae by PCR, Fluid (11/30/2024 12:35 PM EDT) CHLAMYDIA PCR, [place] Negative Negative 12/04/2024 12:35 PM EDT [facility] Comment:Chlamydia trachomati s not detected by nucleic acid amplification. This does not exclude the possibility of infection because results are dependent on adequate specimen collection. GONORRHOEAE PCR, [place] Negative Negative 12/04/2024 12:35 PM EDT [facility] Comment:Neisseria gonorrhoea e not detected by nucleic acid amplification. This does not exclude the possibility of infection because results are dependent on adequate specimen collection. ThinPrep cytology technique (qualifier value) (Cervix/Endocervi x) 11/30/2024 12:35 PM EDT 12/03/2024 3:04 AM EDT us Lars Rodriguez APRN-CNMukesh MICROBIOLOGY - GENERA L ORDERABLES Final Result [facility] [address] [place] [address], * Thin Prep Pap Test (11/30/2024 12:35 PM EDT) Case Report Gynecologic Cytology Report Case: [id number] Authorizing Provider: Lars Rodriguez, Collected: 11/30/2024 1235 ASSISTANT DIRECTOR OF PUBLIC WORKS-CNM Ordering Location: [facility] Received: 11/30/2024 1235 Certified Nurse Roller Coaster Operator - [facility] Screen: SOHAM John(ASCP) Specimen: Thin Prep Pap, Cervix/Endocer vix 11:48 AM EDT [facility] Specimen Adequacy Satisfactory for evaluation. A transformation zone component was not noted. The lack of a transformation zone component in a patient is not unusual. 11:48 AM EDT [facility] Interpretation NEGATIVE FOR INTRAEPITHELIA L LESION OR MALIGNANCY NEGATIVE FOR INTRAEPITHELIA L LESION OR MALIGNANCY, UNSATISFACTORY , EPITHELIAL CELL ABNORMALITY, GLANDULAR EPITHELIAL CELL ABNORMALITY. , SQUAMOUS EPITHELIAL CELL ABNORMALITY, NO DIAGNOSIS RENDERED. 11:48 AM EDT [facility] at 1148 EDT Other Findings Fungal organisms morphologicall y consistent with Lelo species are present. 11:48 AM EDT [facility] Additional Information The Pap test is a screening test with an inherent, but low, probability of error. The Pap test is primarily effective for the diagnosis and prevention of squamous cell carcinoma. Regular screening is critical for prevention. ThinPrep liquid-based slides, which meet the Medical Device Sales criteria for automated screening, have been screened by the [email or web address] Imaging System (as of 02/20/07) along with an additional manual rescreening by a cytotechnologi st and, if indicated, by a pathologist. 11:48 AM EDT [facility] Clinical Information 11:48 AM EDT [facility] Embedded Images 11:48 AM EDT [facility] ThinPrep cytology technique (qualifier value) (Cervix/Endocervi x) 11/30/2024 12:35 PM EDT 11/30/2024 12:35 PM EDT Lars Rodriguez APRN-CHRISTOS PATHOLOGY/CYTOLOGY OR DERABLES Final Result [facility] [address] [place] [address], * High risk HPV w/orly (11/30/2024 12:35 PM EDT) HPV 16 Negative Negative 12/03/2024 12:45 PM EDT [facility] HPV 18 Negative Negative 12/03/2024 12:45 PM EDT [facility] OTHER HIGH RISK HPV Negative Negative 12/03/2024 12:45 PM EDT [facility] Comment:HPV types 31, 33, 35 , 39, 45, 52, 56, 58, 59, 66, and 68 DNA were undetectable. ThinPrep cytology technique (qualifier value) (Cervix/Endocervi x) 11/30/2024 12:35 PM EDT 12/03/2024 3:04 AM EDT Lars Noel Michael [facility] LAB BLOOD ORDERABLES Final Result [facility] [address] [place] [address], * HIV 1&2 AB/AG Screen (P24 AG) (11/30/2024 12:20 PM EDT) HIV 1 AND 2 AB/AG SCREEN Non-Reacti ve Non-Reacti ve 11/30/2024 4:08 PM EDT [facility] Blood Venous blood / Unknown Venipuncture / Unknown 11/30/2024 12:20 PM EDT 11/30/2024 12:20 PM EDT Narrative [facility] - 11/30/2024 4:08 PM EDT This information has been disclosed to you from confidential records protected from disclosure by state law. You shall make no further disclosure of this information without the specific, written and informed release of the individual to whom it pertains, or as otherwise permitted by state law. A general authorization for the release of medical or other information is not sufficient for the purpose of the release of HIV test results or diagnoses. Lars Rodriguez [facility] LAB BLOOD ORDERABLES Final Result [facility] [address] [place] [address], [place] [phone] * Rubella IGG immune status (11/30/2024 12:20 PM EDT) RUBELLA IMMUNE IGG 2.5 <0.9 AI 11/30/2024 5:11 PM EDT [facility] Blood Venous blood / Unknown Venipuncture / Unknown 11/30/2024 12:20 PM EDT 11/30/2024 12:20 PM EDT Narrative [facility] - 11/30/2024 5:11 PM EDT Interpretation < 0.8 NEGATIVE - considered not immune. 0.8 - 0.9 EQUIVOCAL - consider retesting with new specimen. > 0.9 POSITIVE - considered immune. Lars Rodriguez [facility] LAB BLOOD ORDERABLES Final Result Performing Organization Address [facility]/ZIP Co de Phone Number [facility] [address] [place] [address], * Syphilis Total (Unknown Syphilis Status) (11/30/2024 12:20 PM EDT) SYPHILIS TOTAL <0.2 <=0.8 AI 11/30/2024 5:11 PM EDT [facility] Blood Venous blood / Unknown Venipuncture / Unknown 11/30/2024 12:20 PM EDT 11/30/2024 12:20 PM EDT Narrative [facility] - 11/30/2024 5:11 PM EDT NON REACTIVE No serologic evidence of infection to Treponema pallidum. Repeat testing may be considered in patients with suspected acute or primary syphilis in 2 to 4 weeks. Lars Rodriguez [facility] LAB BLOOD ORDERABLES Final Result Performing Organization Address [facility] Co de Phone Number [facility] [address] [place] [address], * Glucose 1h post 50g load (11/30/2024 12:20 PM EDT) GLUCOSE, 1HR POST 50GM LOAD 82 65 - 139 mg/dL 11/30/2024 3:27 PM EDT [facility] Blood Venous blood / Unknown Venipuncture / Unknown 11/30/2024 12:20 PM EDT 11/30/2024 12:20 PM EDT Lars Rodriguez [facility] LAB BLOOD ORDERABLES Final Result [facility] [address] [place] [address], * ABO Rh Repeat (11/30/2024 12:20 PM EDT) ABO A 11/30/2024 7:42 PM EDT [facility] RH Positive 11/30/2024 7:42 PM EDT [facility] Blood Venous blood / Unknown Venipuncture / Unknown 11/30/2024 12:20 PM EDT 11/30/2024 12:20 PM EDT Lars SANDERS BLOOD BANK TEST ORDER CONNIE Final Result Performing Organization Address City/[facility]/ZIP Co de Phone Number [facility] [address] [place] [address], [facility] [address] [place] [address], * (ABNORMAL) Drug Screen, Urine (11/30/2024 12:20 PM EDT) AMPHETAMINE/METHAM P Negative Negative 11/30/2024 3:29 PM EDT [facility] Comment:AMPH/METH screening cut off = 1000 ng/mL COCAINE METABOLITE Negative Negative 2024 3:29 PM EDT [facility] Comment:Cocaine screening cu t off value = 300 ng/mL ECSTASY Negative Negative 11/30/2024 3:29 PM EDT [facility] Comment:Ecstasy screening cu t off value = 500 ng/mL METHADONE Negative Negative 11/30/2024 3:29 PM EDT [facility] Comment:Methadone screening cut off value = 300 ng/mL. OPIATES Negative Negative 11/30/2024 3:29 PM EDT [facility] Comment: Opiates screening cut off value = 300 ng/mL This test is used for the detection of codeine, hydrocodone (>1000 ng/mL), morphine and hydromorphone (>900 ng/mL) in urine. OXYCODONE Negative Negative 11/30/2024 3:29 PM EDT [facility] Comment: Oxycodone screening cut off value = 300 ng/mL This test is used for the detection of oxycodone and oxymorphone in urine. PHENCYCLIDINE Negative Negative 11/30/2024 3:29 PM EDT [facility] Comment:Phencyclidine screen ing cut off value = 25 ng/mL CANNABINOIDS Positive(A) Negative 11/30/2024 3:29 PM EDT [facility] Comment:Cannabinoids/THC scr eening cut off value = 50 ng/mL Urine Barbiturates Negative Negative 2024 3:29 PM EDT [facility] Comment:Barbiturates screeni ng cut off value = 200 ng/mL BENZODIAZEPINES Negative Negative 3:29 PM EDT [facility] Comment:Benzodiazepines scre ening cut off value = 200 ng/mL Urine (Other) 11/30/2024 12: 20 PM EDT 11/30/2024 12:20 PM EDT Narrative [facility] - 11/30/2024 3:29 PM EDT Confirmation available upon request. Lars Rodriguez ASSISTANT DIRECTOR OF PUBLIC WORKS-CNM URINE ORDERABLES Margarita oreilly Result [facility] [address] [place] [address], * Hepatitis panel, acute (11/30/2024 12:20 PM EDT) HEPATITIS B SURF AG Non-Reacti ve Non-Reacti ve 11/30/2024 6:55 PM EDT [facility] HEPATITIS A IGM Non-Reacti ve Non-Reacti ve 11/30/2024 6:55 PM EDT [facility] HEPATITIS B CORE IGM Non-Reacti ve Non-Reacti ve 11/30/2024 6:55 PM EDT [facility] ANTI HCV W/PCR REFLX Non-Reacti ve Non-Reacti ve 11/30/2024 6:55 PM EDT [facility] Comment: If recent infection suspected, recommend repeat testing (>2 months). Frpgmf-ac-mjjtjf ratio is <1.0. Blood Venous blood / Unknown Venipuncture / Unknown 11/30/2024 12:20 PM EDT 11/30/2024 12:20 PM EDT [facility] BLOOD ORDERABLES Final Result [facility] [address] [place] [address], * ABO/Rh (11/30/2024 12:20 PM EDT) ABO A 11/30/2024 5:06 PM EDT [facility] RH Positive 11/30/2024 5:06 PM EDT [facility] Blood Venous blood / Unknown Venipuncture / Unknown 11/30/2024 12:20 PM EDT 11/30/2024 12:20 PM EDT Lars [facility] BLOOD BANK TEST ORDER CONNIE Final Result [facility] [address] [place] [address], [facility] [address] [place] [address], * CBC without diff (11/30/2024 12:20 PM EDT) WBC 9.2 4 - 11 x10E9/L 11/30/2024 3:04 PM EDT [facility] RBC Count 4.58 3.8 - 5.2 X10E12/L 11/30/2024 3:04 PM EDT [facility] Hemoglobin 14.5 11.7 - 15.5 g/dL 11/30/2024 3:04 PM EDT [facility] Hematocrit 42.7 35 - 47 % 11/30/2024 3:04 PM EDT [facility] MCV 93 80 - 100 fL 11/30/2024 3:04 PM EDT [facility] MCH 31.7 27 - 34 pg 11/30/2024 3:04 PM EDT [facility] MCHC 33.9 32 - 36 g/dL 11/30/2024 3:04 PM EDT [facility] RDW 12.6 11.5 - 15 % 11/30/2024 3:04 PM EDT [facility] Platelet Count 316 150 - 450 X10E9/L 11/30/2024 3:04 PM EDT [facility] MPV 8.7 7 - 12 fL 11/30/2024 3:04 PM EDT [facility] Blood Venous blood / Unknown Venipuncture / Unknown 11/30/2024 12:20 PM EDT 11/30/2024 12:20 PM EDT Lars Rodriguez APRN-[facility] LAB BLOOD ORDERABLES Final Result [facility] [address] [facility] [address] [place] [address], * Varicella zoster antibody, IgG (11/30/2024 12:20 PM EDT) VARICELLA IGG 3.3 <1.0 AI 11/30/2024 5:11 PM EDT [facility] Blood Venous blood / Unknown Venipuncture / Unknown 11/30/2024 12:20 PM EDT 11/30/2024 12:20 PM EDT Narrative [facility] - 11/30/2024 5:11 PM EDT Intepretation < 0.9 Negative 0.9 - 1.0 Equivocal > 1.0 Positive Lars Rodriguez ASSISTANT DIRECTOR OF PUBLIC WORKS-CN LAB BLOOD ORDERABLES Final Result [facility] 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
--- OUTSIDE RECORDS SUMMARY | 2025-02-10 12:37 | XMS_ITS | Encounter Summary ---
Author Organization [employer] s tem Address [id number] [address] [place] [address] Care Team Providers Care Manager Customs Name Role Phone Unavailable Primary Care Provider Unavailabl e Encounter Details Date Type Department Care Team (Late st Contact Info) Description 11/30/2024 Telephone [facility] Certified Nurse Stockbroker - [place] [address] [facility] [address] [place] [address] Paula Cheema Social History Tobacco Use Types Packs/Day Years Used Date Smoking Tobacco: Every Day Cigarettes Smokeless Tobacco: Never Alcohol Use Standard Drinks/Week Comments Not Currently 0 (1 standard drink = 0.6 oz pur e alcohol) Childcare Answer Date Recorded Childcare Unknown 11/15/2018 Employment Answer Date Recorded Employment Unknown 11/15/2018 Hunger Screening Answer Date Recorded Within the past 12 months we worried whether our food would run out before we got money to buy more. Never True 10/12/2024 Within the past 12 months th e food we bought just didn't last and we didn't have money to get more. Never True 10/12/2024 Estimated Date of Delivery Comme nts Yes 06/13/2025 Based on Ultraso und Sex and Gender Information Value Date Recorded Sex Assigned at Not on file Legal Sex Female 12:10 PM EDT Gender Identity Not on file Sexual Orientation Not on file documented as of this encounter Miscellaneous Notes * Telephone Encounter - Paula Cheema - 11/30/2024 9:35 AM EDT Patient is a new OB (12w 1d) and has [place] Medicaid. Was assigned [employer], which is out of network and called [employer] and they are switching her to [employer]. #[phone]. Has not received her new card yet. documented in this encounter Plan of Treatment Upcoming Encounters Date Type Department Care Team (Late st Contact Info) Description 02/22/2025 9:00 AM EDT Routine [facility] Certified Nurse Stockbroker - [place] [address] [facility] [address] [place] [address] 03/12/2025 10:30 AM EDT Office Visit [facility] Physicians Pediatric Cardiology [address] [place] [phone] Jesus Tucker MD [address] [place] [address] 03/12/2025 1:00 PM EDT Appointment [facility] US Imaging [address] [place] [phone] Catrachito Joel MD [address], [address] [place] [address] 03/12/2025 2:00 PM EDT Office Visit Maternal- Medicine at [facility] [address] [place] [phone] Catrachito Joel MD [address], [address] [place] [address] documented as of this encounter Visit Diagnoses Not on filedocumented in this encounter
--- OUTSIDE RECORDS SUMMARY | 2025-02-10 12:37 | XMS_ITS | Encounter Summary ---
Author Organization [employer] [facility] tem Address [id number] [address] [place] [address] Care Team Providers Care Frame Hand Name Role Phone Unavailable Primary Care Provider Unavailabl e Encounter Details Date Type Department Care Team (Late st Contact Info) Description 01/28/2025 Results Follow-Up [facility] Certified Nurse Recovery Room Nurse - [place] [address] [place] [address] Liliana Rodriguez, WINDING RACK OPERATOR-CN [address] [facility] [place], [place] [id number] AFP Single Marker Scrn, Maternal, Serum Social History Tobacco Use Types Packs/Day Years [...] got money to buy more. Never True 01/25/2025 Within the past 12 months th e food we bought just didn't last and we didn't have money to get more. Never True 01/25/2025 Estimated Date of Delivery Comme nts Yes 06/13/2025 Based on Ultraso und Sex and Gender Information Value Date Recorded Sex Assigned at Not on file Legal Sex Female 12:10 PM EDT Gender Identity Not on file Sexual Orientation Not on file documented as of this encounter Progress Notes * MARTA Cabrales - 01/28/2025 5:55 PM EDT AFP marker screen is negative MARTA Cabrales 01/28/25 1805 documented in this encounter Plan of Treatment Upcoming Encounters Date Type Department Care Team (Late st Contact Info) Description 02/22/2025 9:00 AM EDT Routine [facility] Certified Nurse Recovery Room Nurse - [place] [id number] [facility] [address] [place] [address] 03/12/2025 10:30 AM EDT Office Visit [facility] Physicians Pediatric Cardiology [address] [place] [phone] Jesus Tucker MD [address] [place] [address] 03/12/2025 1:00 PM EDT Appointment [facility] US Imaging [address] [place] [phone] Catrachito Joel MD [address], [address] [place] [address] 03/12/2025 2:00 PM EDT Office Visit Maternal- Medicine at [facility] [address] [place] [phone] Catrachito Joel MD [address], [address] [place] [address] documented as of this encounter Visit Diagnoses Not on filedocumented in this encounter
--- OUTSIDE RECORDS SUMMARY | 2025-02-10 12:37 | XMS_ITS | Encounter Summary ---
Author Organization [employer] [facility] tem Address [facility]-[id number] [address] [place] [address] Care Team Providers Care [employer] Science Teacher Name Role Phone Unavailable Primary Care Provider Unavailabl e Encounter Details Date Type Department Care Team (Late st Contact Info) Description 01/04/2025 Results Follow-Up [facility] Certified Nurse Statement Distribution Clerk - [place] [address] [facility] [address] [place] [address] Liliana Rodriguez, ADMINISTRATOR OF HOME HEALTH-CN [address] [facility] [place], [place] [id number] Urine Culture Social History Tobacco Use Types Packs/Day Years [...] encounter Progress Notes * MARTA Cabrales - 01/04/2025 8:26 AM EDT Your urine cx is neg Nothing to do MARTA Cabrales 01/04/25 0826 documented in this encounter Plan of Treatment Upcoming Encounters Date Type Department Care Team (Late st Contact Info) Description 02/22/2025 9:00 AM EDT Routine [facility] Certified Nurse Statement Distribution Clerk - [place] [id number] [facility] [address] [place] [address] 03/12/2025 10:30 AM EDT Office Visit [facility] Physicians Pediatric Cardiology [address] [place] [phone] Jesus Tucker MD [address] [place] [address] 03/12/2025 1:00 PM EDT Appointment [facility] US Imaging [address] [place] [phone] Catrachito Joel MD [address], [address] [place] [address] 03/12/2025 2:00 PM EDT Office Visit Maternal- Medicine at [facility] [address] [place] [phone] Catrachito Joel MD [address], [address] [place] [address] documented as of this encounter Visit Diagnoses Not on filedocumented in this encounter
--- OUTSIDE RECORDS SUMMARY | 2025-02-10 12:37 | XMS_ITS | Encounter Summary ---
Author Organization [facility] [employer] [facility] tem Address [id number] [address] [place] [address] Care Team Providers Care Accounts Payable Assistant Name Role Phone Unavailable Primary Care Provider Unavailabl e Reason for Referral * Consultation (Routine) - Pending Review Specialty Diagnoses / Procedures Referred By Tamanna hay Referred To Contact Maternal and Medicine Diagnoses Trisomy 21 Meggan Herrera APRN-CNM [address] [place] [address] Phone: tel: fax: Maternal- Medicine at [facility] [address] [place] [address] Phone: tel: fax: Referral ID Status Reason Start Date Expiration Date Visits Requested Visits Authorized [id number] Pending Review Specialty Services Required 12/11/2024 12/11/2025 1 1 Encounter Details Date Type Department Care Team (Late st Contact Info) Description 12/11/2024 Orders Only [facility] Certified Nurse Soft Water Mechanic - [place] [address] [address] Meggan Herrera APRN-CNM [address] [place] [address] Trisomy 21 (Primary Dx) Social History Tobacco Use Types [...] Info) Description 02/22/2025 9:00 AM EDT Routine [facility] Certified Nurse Soft Water Mechanic - [place] [address] [facility] [address] [place] [address] 03/12/2025 10:30 AM EDT Office Visit [facility] Physicians Pediatric Cardiology [address] [place] [phone] Jesus Tucker MD [address] [place] [address] 03/12/2025 1:00 PM EDT Appointment [facility] US Imaging [address] [place] [phone] Catrachito Joel MD [address], [address] [place] [address] 03/12/2025 2:00 PM EDT Office Visit Maternal- Medicine at [facility] [address] [place] [address] Catrachito Joel MD [address], [address] [place] [address] Scheduled Referrals Name Type Priority Associated Diagnoses Order Schedule Maternal- Medicine at [facility] - Genetic Counseling Outpatient Referral Routine Trisomy 21 1 Occurrences starting 12/11/2024 until 12/11/2025 documented as of this encounter Visit Diagnoses Diagnosis Trisomy 21- Primary Down's syndrome documented in this encounter
--- OUTSIDE RECORDS SUMMARY | 2025-02-10 12:37 | XMS_ITS | Encounter Summary ---
Author Organization [facility] tem Address [facility]-[id number] [address] [place] [address] Care Team Providers Care Alliances Consultant Name Role Phone Unavailable Primary Care Provider Unavailabl e Encounter Details Date Type Department Care Team (Late Contact Info) Description 12/19/2024 Orders Only [facility] Certified Nurse Neurology Director - [place] [address] [facility] [address] [place] [address] Kat Angela RN screening encounter Social History Tobacco Use Types Packs/Day Years [...] Info) Description 02/22/2025 9:00 AM EDT Routine [facility] Certified Nurse Neurology Director - [place] [address] [facility] [address] [place] [phone] 03/12/2025 10:30 AM EDT Office Visit [facility] Physicians Pediatric Cardiology [address] [place] [address] Jesus Tucker MD [address] [place] [address] 03/12/2025 1:00 PM EDT Appointment [facility] US Imaging [address] [place] [phone] Catrachito Joel MD [address], [address] [place] [address] 03/12/2025 2:00 PM EDT Office Visit Maternal- Medicine at [facility] [address] [place] [phone] Catrachito Joel MD [address], [address] [place] [address] documented as of this encounter Procedures Procedure Name Priority Date/Time Associated Diagnosis Comments CARRIER STUDY NON-[place] Routine 11/30/2024 screening encounter documented in this encounter Results * Carrier Study Non-[facility] (11/30/2024) Other Source MANUALL Y TRANSCRIBED RESULTS Comment:Carrier screen > pat ient positive carrier for Ncsnv-Ehnni-Zugqh Syndrome 11/30/2024 Liliana Rodriguez APRN-[facility] BLOOD ORDERABLES Final Result MANUALLY TRANSCRIBED RESULTS documented in this encounter Visit Diagnoses Diagnosis screening encounter documented in this encounter
--- OUTSIDE RECORDS SUMMARY | 2025-02-10 12:37 | XMS_ITS | Encounter Summary ---
Author Organization [facility] tem Address [facility]-[id number] [address] [place] [address] Care Team Providers Care Washery Boss Name Role Phone Unavailable Primary Care Provider Unavailabl e Encounter Details Date Type Department Care Team (Late st Contact Info) Description 10/20/2024 Orders Only [facility] Obstetrics/Gynecology [address] [place] [phone] Liliana Rodriguez, MANAGER DAIRY-CN [address] [facility] [place] [address] with uncertain viability, single or unspecified fetus (Primary Dx) Social History Tobacco Use Types [...] Info) Description 02/22/2025 9:00 AM EDT Routine [facility] Certified Nurse Labor Relations Manager - [place] [address] [place] [address] 03/12/2025 10:30 AM EDT Office Visit [facility] Pediatric Cardiology [address] [place] [phone] Jesus Tucker MD [address] [place], [place] [phone] 03/12/2025 1:00 PM EDT Appointment [facility] US Imaging [address] [place] [address] Catrachito Joel MD [address], [address] [place] [address] 03/12/2025 2:00 PM EDT Office Visit Maternal- Medicine at [facility] [address] [place] [address] Catrachito Joel MD [address] [facility], [address] [place] [address] documented as of this encounter Results * Ultrasound less than 14 weeks with transvaginal (10/26/2024 9:53 AM EDT) Anatomical Region Laterality Modality OB-SCIENTIFIC RECRUITER Ultrasound 10/26/2024 12:4 2 PM EDT Narrative 10/26/2024 12:44 PM EDT US PREG LESS THAN 14 WKS WITH TRANSVAGINAL: 10/26/2024 9:26 AM Clinical: Follow-up viability. Low heart motion. Real-time transabdominal and transvaginal sonography pelvis performed.. Comparison ultrasound 10/19/2024. There is a single intrauterine with cardiac activity 128-141 beats per minute. [place]-rump length of 1.0 cm corresponds to 7 weeks 0 day gestation. Amount amniotic fluid is normal. Placenta not well seen due to early gestational age. Maternal ovaries are unremarkable. No cul-de-sac fluid seen. Impression: * Single intrauterine 7 weeks 0 day gestation with cardiac activity. Appropriate interval growth compared with one week ago. * Ultrasound IDRIS 06/14/2025 Finalized by Matt Singleton MD on 10/26/2024 12:44 PM Procedure Note Matt Singleton MD - 10/26/2024 US PREG LESS THAN 14 WKS WITH TRANSVAGINAL: 10/26/2024 9:26 AM Clinical: Follow-up viability. Low heart motion. Real-time transabdominal and transvaginal sonography pelvis performed.. Comparison ultrasound 10/19/2024. There is a single intrauterine with cardiac activity 128-141beats per minute. [place]-rump length of 1.0 cm corresponds to 7 weeks 0 day gestation. Amount amniotic fluid is normal. Placenta not well seen due to early gestational age. Maternal ovaries are unremarkable. No cul-de-sac fluid seen. Impression: * Single intrauterine 7 weeks 0 day gestation with cardiacactivity. Appropriate interval growth compared with one week ago. * Ultrasound IDRIS 06/14/2025 Finalized by Matt Singleton MD on 10/26/2024 12:44 PM us Liliana Rodriguez APRN-CNMukesh G US ORDERABLES Fin al Result documented in this encounter Visit Diagnoses Diagnosis with uncertain viability, single or unspecified fetus- Primary with uncertain viability, single or unspecified fetus documented in this encounter
[2025-02-10 12:57] VITALS: BP 114/63; PULSE 77
[2025-02-10 13:18] LABS: Glucose Urine UA NEGATIVE (NEGATIVE)
== END 2025-02-10 13:46 | disposition home or self-care (01) ==
LOC: FBC 12:34
PROVIDERS: Admitting Provider Family Medicine Addiction Medicine; Visit Provider Family Medicine Addiction Medicine
DX: O99.891 Other specified diseases and conditions complicating pregnancy (principal); R10.9 Unspecified abdominal pain; Z3A.22 22 weeks gestation of pregnancy
CPT/HCPCS: 59025; 81003; G0378; G0379